=== PATIENT | male | born 1985 | race American Indian/Alaskan Native ===

== ENCOUNTER 2020-08-09 11:41 | Emergency (ER) | payer MEDICAID ==
--- NOTE | 2020-08-09 12:16 | EDM.PDOCBH ---
ED HPI GENERAL MEDICAL PROBLEM - General Chief Complaint: Drug or Alcohol Abuse Stated Complaint: RIGHT FOOT PAIN, PLUS EVAL Time Seen by Provider: 08/09/20 12:20 Source of Information: Reports: Patient History Limitations: Reports: No Limitations - History of Present Illness INITIAL COMMENTS - FREE TEXT/NARRATIVE: 35-year-old male presents with chronic right foot pain and a desire to enter detox for chronic alcohol abuse. Foot pain is not new, in fact he has an appointment with the right of way buyer in 5 days and symptoms are not significantly changing. He has had no new injury. There is some bruising and discomfort on top of the right foot which he is concerned about, he has mostly anxious to be admitted for detox. Onset: Unknown/Unsure Associated Symptoms: Reports: Other (Other than the foot pain he has no other complaints) - Related Data Allergies Allergy/AdvReac Type Severity Reaction Status Date / Time No Known Allergies Allergy Verified 08/09/20 11:59 Home Meds: Home Meds . [Unable to Verify Home Med List] 08/09/20 [History] ED ROS GENERAL - Review of Systems Review Of Systems: See Below Constitutional: Denies: Fever, Chills Respiratory: Denies: Shortness of Breath Cardiovascular: Denies: Chest Pain GI/Abdominal: Denies: Nausea, Vomiting Neurological: Reports: Other (Seems mildly to moderately intoxicated at this time) ED EXAM, BEHAVIORAL HEALTH - Physical Exam Exam: See Below Exam Limited By: Intoxication General Appearance: Alert, No Apparent Distress Head: Atraumatic Respiratory/Chest: No Respiratory Distress Cardiovascular: Regular Rate, Rhythm Extremities: Other (There is a small healing chronic wound on the top of the foot near the distal fourth metatarsal, with some mild bruising and tenderness to palpation but no significant deformity or acute findings.) COURSE, BEHAVIORAL HEALTH COMP - Course Vital Signs: Last Vital Signs Temp 98.2 F 08/09/20 12:10 Pulse 82 08/09/20 12:10 Resp 20 08/09/20 12:10 BP 127/74 08/09/20 12:10 Pulse Ox 98 08/09/20 12:10 Orders, Labs, Meds: Laboratory Tests 08/09/20 08/09/20 08/09/20 Range/Units 12:15 12:32 12:54 Urine Opiates Screen Negative (NEGATIVE) Ur Oxycodone Screen Negative (NEGATIVE) Urine Methadone Screen Negative (NEGATIVE) Ur Propoxyphene Screen Negative (NEGATIVE) Ur Barbiturates Screen Negative (NEGATIVE) Ur Tricyclics Screen Presumptive positive H (NEGATIVE) Ur Phencyclidine Scrn Negative (NEGATIVE) Ur Amphetamine Screen Negative (NEGATIVE) U Methamphetamines Scrn Negative (NEGATIVE) Urine MDMA Screen Negative (NEGATIVE) U Benzodiazepines Scrn Negative (NEGATIVE) U Cocaine Metab Screen Negative (NEGATIVE) U Marijuana (THC) Screen Presumptive positive H (NEGATIVE) Ethyl Alcohol 113 mg/dL SARS CoV-2 RNA Rapid DEMETRIUS Negative Re-Assessment/Re-Exam: EtOH was drawn and urine drug screen obtained, the foot is stable and can wait till next week to see the right of way buyer. EtOH is 0.113, patient is stable for detox. Covid was obtained and negative. Departure - Departure Time of Disposition: 14:06 Disposition: DC/Tfer to Other 70 Clinical Impression: Alcohol abuse, Chronic pain in right foot - Discharge Information Instructions: Alcohol Intoxication, [id number] Referrals: PCP,None [Primary Care Provider] - Forms: ED Department Discharge Care Plan Goals: Go to [facility] and follow their recommendations and treatment for detox so you can get discharged and recheck with podiatry next week as scheduled. Sepsis Event Note (ED) - Focused Exam Vital Signs: Vital Signs Temp Pulse Resp BP Pulse Ox 08/09/20 12:10 98.2 F 82 20 127/74 98 08/09/20 12:00 98.2 F 82 20 127/74 98
== END 2020-08-09 14:06 | disposition other institution (70) ==
LOC: JP.ED 11:41
DX: M79.671 Pain in right foot (principal); G89.29 Other chronic pain; F10.129 Alcohol abuse with intoxication, unspecified; Y90.5 Blood alcohol level of 100-119 mg/100 ml; Z20.822 Contact with and (suspected) exposure to COVID-19
CPT/HCPCS: 36415; 80305-QW; 80307; 99283; 99284; U0002